=== PATIENT | female | born 1970 | race American Indian/Alaskan Native ===

== ENCOUNTER 2017-12-02 16:19 | Emergency (ER) | payer SELFPAY ==
[2017-12-02 16:55] VITALS: BP 138/96
--- NOTE | 2017-12-02 18:52 | Emergency Department Report ---
ED Extremity Problem HPI - General Chief complaint: Extremity Injury, Lower Stated complaint: LEFT FOOT PAIN Time Seen by Provider: 12/02/17 18:49 Source: patient, family Mode of arrival: Ambulatory Limitations: No Limitations - History of Present Illness Initial comments: Patient airport left foot pain for 2 weeks. Denies any injury to left foot. She has a history of high blood pressure. Patient reports that the pain is on and off its 8 out of 10 lateral left foot. No radiation of pain proximally. Pain is achy and it comes and goes. She had a history of hysterectomy in the past. MD Complaint: extremity pain Onset/Timin -: week(s) Location: left, lower extremity History of Same: Yes -: Yes arthralgia Radiation: none Severity scale (0 -10): 8 Quality: aching Consistency: intermittent Improves with: immobilization Worsens with: weight bearing, walking Associated Symptoms: arthralgias. denies: fever, myalgias, rash - Related Data Previous Rx's Medication Instructions Recorded Last Taken Type Ibuprofen [Motrin] 600 mg PO Q8H PRN #15 tablet 12/02/17 Unknown Rx traMADol [Ultram] 50 mg PO Q6HR PRN #12 tablet 12/02/17 Unknown Rx Allergies Allergy/AdvReac Type Severity Reaction Status Date / Time metronidazole [From Flagyl] Allergy Hives Verified 12/02/17 16:51 ED Review of Systems ROS: Stated complaint: LEFT FOOT PAIN Other details as noted in HPI Comment: All other systems reviewed and negative Constitutional: no symptoms reported Respiratory: no symptoms reported Cardiovascular: denies: chest pain, palpitations, dyspnea on exertion, edema, syncope, paroxysmal nocturnal dyspnea Gastrointestinal: denies: abdominal pain, nausea, vomiting, diarrhea, constipation, hematemesis, melena, hematochezia Genitourinary: denies: dysuria, hematuria Musculoskeletal: arthralgia. denies: back pain, joint swelling, myalgia Skin: denies: rash Neurological: denies: headache, weakness, numbness, paresthesias, confusion, abnormal gait, vertigo ED Past Medical Hx - Past Medical History Previous Medical History?: Yes Hx Hypertension: Yes - Surgical History Past Surgical History?: Yes Additional Surgical History: Hysterectomy - Family History Family history: no significant - Social History Smoking Status: Former Smoker Substance Use Type: Alcohol, Non Opiate Pain, Prescribed - Medications Home Medications: Home Medications Medication Instructions Recorded Confirmed Last Taken Type Ibuprofen [Motrin] 600 mg PO Q8H PRN #15 tablet 12/02/17 Unknown Rx traMADol [Ultram] 50 mg PO Q6HR PRN #12 tablet 12/02/17 Unknown Rx ED Physical Exam - General Limitations: No Limitations General appearance: alert, in no apparent distress - Head Head exam: Present: atraumatic, normocephalic, normal inspection - Eye Eye exam: Present: normal appearance, PERRL, EOMI Pupils: Present: normal accommodation - ENT ENT exam: Present: normal exam, normal orophraynx, mucous membranes moist - Neck Neck exam: Present: normal inspection, full ROM, other (no C-spine tenderness). Absent: tenderness, meningismus, lymphadenopathy, thyromegaly - Respiratory Respiratory exam: Present: normal lung sounds bilaterally. Absent: respiratory distress, chest wall tenderness, accessory muscle use - Cardiovascular Cardiovascular Exam: Present: regular rate, normal rhythm, normal heart sounds. Absent: systolic murmur, diastolic murmur - GI/Abdominal GI/Abdominal exam: Present: soft, normal bowel sounds. Absent: distended, tenderness, guarding, rebound, rigid - Extremities Exam Extremities exam: Present: normal inspection, full ROM, normal capillary refill , other (no clubbing, cyanosis or edema. +2 pulses all extremities. No neurovascular compromise. +5 strength in all extremities. No bony deformity or bony tenderness. No swelling to joints, erythema or crepitus. No laceration , contusion or abrasions noted to extremities.). Absent: tenderness, pedal edema, joint swelling, calf tenderness - Back Exam Back exam: Present: normal inspection, full ROM, other (patient ambulates without any difficulties). Absent: tenderness, CVA tenderness (R), CVA tenderness (L), muscle spasm, paraspinal tenderness, vertebral tenderness, rash noted - Neurological Exam Neurological exam: Present: alert, oriented X3, normal gait, reflexes normal. Absent: motor sensory deficit - Psychiatric Psychiatric exam: Present: normal affect, normal mood - Skin Skin exam: Present: warm, dry, intact, normal color. Absent: rash ED Course Vital Signs 12/02/17 16:52 Temperature 97.7 F Pulse Rate 82 Respiratory 18 Rate Blood Pressure 138/96 O2 Sat by Pulse 99 Oximetry - Reevaluation(s) Reevaluation #1: 12/02/17 20:11 Patient given tramadol 50 mg by mouth in emergency room for left foot pain. ED Medical Decision Making - Radiology Data Radiology results: report reviewed No acute fracture or dislocation and no soft tissue swelling seen to left foot x -ray. Patient with bone spurs - Medical Decision Making ED course: She reports that she is having left foot pain does been ongoing. She has not been seen by orthopedic doctor. X-ray reveals no acute fracture or dislocation but bone spur. This was discussed patient and I told her she needs up with orthopedic for evaluation and treatment. Patient was given Ultram 50 mg when necessary emergency room. She voiced understanding of discharge instruction and treatment plan and discharged home in stable condition with prescription for Ultram. Critical care attestation.: If time is entered above; I have spent that time in minutes in the direct care of this critically ill patient, excluding procedure time. ED Disposition Clinical Impression: Arthralgia of left foot, Bone spur of left foot Disposition: DC- TO HOME OR SELFCARE Is pt being admited?: No Does the pt Need Aspirin: No Condition: Stable Instructions: Arthralgia (ED) Additional Instructions: You have apart bone spur to the back of your left foot and discontinued be the reason why having foot pain without having any trauma. you will need follow-up with orthopedic doctor for further evaluation and treatment. 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 You can take anti-inflammatories such as Motrin as prescribed for inflammation Prescriptions: Ibuprofen [Motrin] 600 mg PO Q8H PRN #15 tablet PRN Reason: Pain traMADol [Ultram] 50 mg PO Q6HR PRN #12 tablet PRN Reason: Pain Referrals: NATE TREADWELL MD [Staff Physician] - 2-3 Days [facility] [Outside] - 2-3 Days Forms: Work/School Release Form(ED)
[2017-12-02] MEDS ORDERED: ULTRAM PO ONE (18:53)
--- NOTE | 2017-12-02 19:40 | XRay Report ---
FINAL REPORT EXAM: XR FOOT 3+V LT HISTORY: foot injuty and pain, Left TECHNIQUE: AP, lateral, and oblique portable views of the left foot PRIORS: None. FINDINGS: There is no evidence for acute fracture or dislocation. No soft tissue swelling or radiopaque foreign bodies are seen. Bony mineralization is normal. Joint spaces are maintained. Spurring off the plantar and posterior aspects of the calcaneus is seen. IMPRESSION: No acute soft tissue or bony abnormality noted.
== END 2017-12-02 20:40 | disposition home or self-care (01) ==
LOC: ED 16:19
DX: M77.9 Enthesopathy, unspecified (principal); I10 Essential (primary) hypertension; Z87.891 Personal history of nicotine dependence; Z88.8 Allergy status to other drugs, medicaments and biological substances
CPT/HCPCS: 99283